=== PATIENT | male | born 1955 | race Hispanic/Latino ===

== ENCOUNTER 2017-03-21 20:21 | Inpatient (IN) | payer OTHER ==
--- NOTE | 2017-03-21 21:11 | ED PDOC ---
Arrival/HPI - General Time Seen by Provider: 03/21/17 20:33 Historian: Patient - History of Present Illness Narrative History of Present Illness (Text): 03/21/17 21:11 61 year old male, whose past medical history include prostate CA with metastasis , presents to the emergency department for evaluation following outpatient MRI results this afternoon tonight. Patient with history of right vague facial discomfort and facial numbness began last week. Patient was seen at [facility] days ago for similar complaints and had been admitted with negative neurological work up and negative CT studies subsequently discharged and recommended follow up. No significant findings at this time. Patient today was sent by her radiation/oncologist who ordered outpatient MRI. Given the findings on MRI and inability to reach Dr. Owens patient was transported to [facility] for further evaluation. Patient states he feels fine and symptoms are minimal. Patient denies any fever, chills, chest pain, shortness of breath, nausea, vomiting, diarrhea, urinary symptoms, back pain, neck pain, headache, dizziness , weakness or any other complaints. Time/Duration: Other (this afternoon) Symptom Onset: Sudden Symptom Course: Unchanged Activities at Onset: Light Context: Home Past Medical History - Provider Review Nursing Documentation Reviewed: Yes Family/Social History - Physician Review Nursing Documentation Reviewed: Yes Family/Social History: No Known Family HX Allergies/Home Meds Allergies/Adverse Reactions: Allergies No Known Allergies Allergy (Unverified 03/21/17 22:31) Home Medications: Home Meds Medication Instructions Recorded Confirmed Oxycodone HCl [Oxycodone HCl] 10 mg PO Q12H 03/22/17 03/22/17 oxyCODONE [oxyCONTIN] 10 mg PO Q6H 03/22/17 03/22/17 Review of Systems - Physician Review All systems were reviewed & negative as marked: Yes - Review of Systems Constitutional: absent: Fevers, Other (Chills) Respiratory: absent: SOB Cardiovascular: absent: Chest Pain Gastrointestinal: absent: Diarrhea, Nausea, Vomiting Genitourinary Male: absent: Dysuria, Frequency, Hematuria Musculoskeletal: absent: Back Pain, Neck Pain Neurological: Other ((+) right facial discomfort/numbness (-) weakness). absent : Headache, Dizziness Physical Exam Vital Signs Reviewed: Yes Vital Signs Temp Pulse Resp BP Pulse Ox 03/21/17 20:46 97.9 F 108 H 18 132/56 L 98 Temperature: Afebrile Blood Pressure: Normal Pulse: Regular Respiratory Rate: Normal Appearance: Positive for: Well-Appearing, Non-Toxic, Comfortable, Other (eating pizza ) Pain Distress: None Mental Status: Positive for: Alert and Oriented X 3 - Systems Exam Head: Present: Atraumatic, Normocephalic Pupils: Present: PERRL Extroacular Muscles: Present: EOMI Conjunctiva: Present: Normal Ears: Present: Normal, NORMAL TM Mouth: Present: Moist Mucous Membranes Pharnyx: Present: Normal Neck: Present: Normal Range of Motion. No: Meningeal Signs, MIDLINE TENDERNESS , Paraspinal Tenderness Respiratory/Chest: Present: Clear to Auscultation, Good Air Exchange. No: Respiratory Distress, Accessory Muscle Use Cardiovascular: Present: Regular Rate and Rhythm, Normal S1, S2. No: Murmurs Abdomen: Present: Normal Bowel Sounds. No: Tenderness, Distention, Peritoneal Signs Back: Present: Normal Inspection Upper Extremity: Present: Normal Inspection. No: Cyanosis, Edema Lower Extremity: Present: Normal Inspection, Normal ROM (FROM x4 intact). No: Edema Neurological: Present: GCS=15, CN II-XII Intact, Speech Normal, Motor Func Grossly Intact, Normal Sensory Function, Normal Cerebellar Funct, Norm Deep Tendon Reflexes, Gait Normal, Memory Normal. No: Other (No focal deficits, no motor or sensory deficits. ) Skin: Present: Warm, Dry, Normal Color. No: Rashes Psychiatric: Present: Alert, Oriented x 3, Normal Insight, Normal Concentration Medical Decision Making ED Course and Treatment: 03/21/17 21:11 Impression: 61 male presents for evaluation on MRI results. Patient reports hx of right facial discomfort and numbness. Plan: -- EKG -- Labs -- Chest X-ray -- Brain W and WO Contrast MRI -- Reassess and disposition Progress Notes: 03/21/17 23:23 Case was d/w who evaluated the patient and accepted on admission to her service.Requested / ,and on consult. - Lab Interpretations Lab Results: 03/21/17 21:45 03/21/17 21:45 Lab Results 03/21/17 21:45: WBC 3.8 L D, RBC 3.09 L, Hgb 8.6 L, Hct 26.3 L, MCV 85.1, MCH 27.8, MCHC 32.7, RDW 16.2 H, Plt Count 117 L, MPV 8.2 03/21/17 21:45: Sodium 132, Potassium 4.2, Chloride 98, Carbon Dioxide 27, Anion Gap 11, BUN 26 H, Creatinine 0.6 L, Est GFR ( Amer) > 60, Est GFR ( Non-Af Amer) > 60, Random Glucose 109, Calcium 9.2, Total Bilirubin 0.4, AST 80 H, ALT 32, Alkaline Phosphatase 883 H, Total Protein 5.8, Albumin 3.2, Globulin 2.6, Albumin/Globulin Ratio 1.3 03/21/17 21:45: PT 14.3 H, INR 1.25 H, APTT 25.3 I have reviewed the lab results: Yes - EKG Interpretation Interpreted by ED Physician: Yes Type: 12 lead EKG NIHSS Scale ([place]) Time Performed: 20:55 - How Severe is the [place] Baseline Level of Consciousness: 0=Alert LOC to Questions: 0=Both comments correct LOC to commands: 0=Obeys both correctly Best Gaze: 0=Normal Visual: 0=No visual loss Facial: 0=Normal Motor Arm - Left: 0=No drift Motor Arm - Right: 0=No drift Motor Leg - Left: 0=No drift Motor Leg - Right: 0=No drift Limb Ataxia: 0=Absent Sensory: 0=Normal Best Language: 0=No aphasia Dysarthia: 0=Normal articulation Extinction & Inattention (Neglect): 0=Normal, no object Score: 0 Risk Level: No Stroke Risk - Scribe Statement The provider has reviewed the documentation as recorded by the Cindy Domínguez Provider Scribe Attestation: All medical record entries made by the Cindy were at my direction and personally dictated by me. I have reviewed the chart and agree that the record accurately reflects my personal performance of the history, physical exam, medical decision making, and the department course for this patient. I have also personally directed, reviewed, and agree with the discharge instructions and disposition. Disposition/Present on Arrival - Present on Arrival Any Indicators Present on Arrival: No History of DVT/PE: No History of Uncontrolled Diabetes: No Urinary Catheter: No History of Decub. Ulcer: No History Surgical Site Infection Following: None - Disposition Have Diagnosis and Disposition been Completed?: Yes Diagnosis: Prostate cancer metastatic to multiple sites, Facial pain Disposition: HOSPITALIZED Disposition Time: 23:20 Patient Plan: Observation Patient Problems: Current Active Problems Problem Status Onset Facial pain Acute Prostate cancer metastatic to multiple sites Acute Condition: STABLE
[2017-03-21 21:52] LABS: HEMOGLOBIN 8.6 g/dL (14.0-18.0); MEAN CELL VOLUME 85.1 fl (80.0-105.0); MEAN CORPUSCULAR HEMOGLOBIN 27.8 pg (25.0-35.0); MEAN CORPUSCULAR HGB CONC 32.7 g/dl (31.0-37.0); MEAN PLATELET VOLUME 8.2 fl (7.0-11.0); RBC 3.09 10^6/uL (3.5-6.1); RED CELL DISTRIBUTION WIDTH 16.2 % (11.5-14.5); WHITE BLOOD COUNT 3.8 10^3/ul (4.5-11.0)
[2017-03-21 22:05] LABS: INR 1.25 (0.93-1.08); PARTIAL THROMBOPLASTIN TIME 25.3 Seconds (25.1-36.5); PROTHROMBIN TIME 14.3 SECONDS (9.4-12.5)
[2017-03-21 22:41] LABS: ALB/GLOB RATIO 1.3 (1.1-1.8); ALBUMIN 3.2 g/dL (3.0-4.8); ALT/SGPT 32 U/L (7-56); AST/SGOT 80 U/L (17-59); BLOOD UREA NITROGEN 26 mg/dL (7-21); CALCIUM 9.2 mg/dL (8.4-10.5); GFR AFRICAN-AMERICAN > 60; GFR NON-AFRICAN AMERICAN > 60
[2017-03-22] MEDS ORDERED: HYDROmorphone 0.5 mg/0.5 ml ISec IVP PRN (01:28)
[2017-03-22] MEDS ORDERED: HYDROmorphone 0.5 mg/0.5 ml ISec IVP STA (03:30)
[2017-03-22 05:32] VITALS: BMI 23.6
[2017-03-22] MEDS: Pantoprazole 40 mg EC Tab PO SCH (07:10)
--- NOTE | 2017-03-22 08:02 | CP.PCM.CON ---
History of Present Illness - History of Present Illness History of Present Illness: Mr Garrison is a 61 year old who is known to our department with stage IV metastatic high risk prostate cancer. He was diagnosed in September 2016 at [facility]. At that time, he had a PSA > 150. His bone scan showed diffuse bone mets. He went [place] [facility] and met with a medical oncologist once. He did not have insurance and only had one injection of androgen deprivation therapy. He did not return because he could not afford further treatment. Many months passed, and then he was admitted to [facility] with pain. He had a CT and MRI at [facility] at the end of February with blood transfusions. He had more extensive bone metastases. He finally had insurance. He then met with us on March 08 for palliative radiation for his pain. On reviewing his imaging studies, he had replacement of almost all of his normal bone with disease. We started focal radiation to the area where there was ventral epidural extension at T10-11 also we are treating his pelvis due to significant pain in the lower back. He also recently met with Dr Saez in consultation and started on androgen deprivation therapy. We had seen him yesterday in our office, and he had mentioned going to [facility] over the weekend due to numbness on his right lip and some changes on the left face. He had a CT of the head there which was reportedly negative. Because of his known extensive disease, I had ordered a MRI of the brain to look for any parenchymal lesions. The MRI of the brain yesterday showed diffuse involvement of the cranium as well as dural enhancement. I had a received a missed call yesterday evening from the prosthetic lab technician, however he did not leave a message so I did not know who was calling. Anyway, they wanted to send him to the emergency room for observation which I deferred to them. Past Patient History - Past Social History Smoking Status: Never Smoked Home Situation {Lives}: With Family - CARDIAC Hx Cardiac Disorders: No - PULMONARY Hx Respiratory Disorders: No - NEUROLOGICAL Hx Neurological Disorder: No - HEENT Hx HEENT Problems: No - RENAL Hx Chronic Kidney Disease: No - ENDOCRINE/METABOLIC Hx Endocrine Disorders: No - HEMATOLOGICAL/ONCOLOGICAL Hx Blood Disorders: No Hx Cancer: Yes (prostate cancer [place] 8 diagnosed in 2017; ADT with [place]) - INTEGUMENTARY Hx Dermatological Problems: No - MUSCULOSKELETAL/RHEUMATOLOGICAL Hx Musculoskeletal Disorders: No Hx Falls: No Other/Comment: b/l hip pain - GASTROINTESTINAL Hx Gastrointestinal Disorders: No - GENITOURINARY/GYNECOLOGICAL Hx Genitourinary Disorders: No - PSYCHIATRIC Hx Psychophysiologic Disorder: No - SURGICAL HISTORY Hx Orthopedic Surgery: Yes (left ankle) Meds Allergies/Adverse Reactions: Allergies Allergy/AdvReac Type Severity Reaction Status Date / Time No Known Allergies Allergy Unverified 03/21/17 22:31 - Medications Medications: Current Medications Hydromorphone HCl (Dilaudid) 0.25 mg IVP Q4H PRN PRN Reason: Pain, moderate (4-7) Last Admin: 03/22/17 01:48 Dose: 0.25 mg Pantoprazole Sodium (Protonix Ec Tab) 40 mg PO 0600 MIGUEL ANGEL Last Admin: 03/22/17 07:10 Dose: Not Given Physical Exam - Head Exam Head Exam: NORMAL INSPECTION - Respiratory Exam Respiratory Exam: Clear to Auscultation Bilateral - Cardiovascular Exam Cardiovascular Exam: REGULAR RHYTHM - GI/Abdominal Exam GI & Abdominal Exam: Normal Bowel Sounds - Neurological Exam Neurological exam: Oriented x3 Additional comments: Numbness along right lip and left face Results - Vital Signs Recent Vital Signs: Last Vital Signs Temp 98.1 F 03/22/17 01:33 Pulse 100 H 03/22/17 01:33 Resp 18 03/22/17 01:33 BP 132/56 L 03/22/17 01:33 Pulse Ox 98 03/21/17 20:46 - Labs Result Diagrams: 03/21/17 21:45 03/21/17 21:45 Assessment & Plan - Assessment and Plan (Free Text) Assessment: Mr Garrison is a 61 year old gentleman with extensive high risk prostate cancer with diffuse replacement of his entire axial skeleton with disease. He was having focal neurologic deficits so I had ordered a MRI. The scan was significant for replacement of the bone marrow with dural enhancement secondary to his disease. Unfortunately, it is not apparent to me that we can offer focal radiation to the head since it is not clear where the bony disease is knicking the cranial nerve (intracranial or extracranially). I had ordered the MRI looking for parenchymal metastases which can offer in late stage disease. He recently started on androgen deprivation therapy, and my hope would be that as the ADT begins to work on his diffuse systemic disease, his symptoms ( including neurologic deficits) will be improve. Given how extensive his cranial disease is, I would hold off on any whole brain/whole face radiation since this would have more morbidity.The ADT was just given less than two weeks ago and will need time to take effect. In the interim, we will finish his palliative radiation to the his mid-back and pelvis, and will continue monitoring him closely with Dr Saez. His facilities locator prognosis is poor given the extent of his disease. He is transfusion dependent at this time because of his poor bone marrow reserve from his cancer.
--- NOTE | 2017-03-22 08:18 | CP.PCM.PN ---
Subjective - Date & Time of Evaluation Date of Evaluation: 03/22/17 Time of Evaluation: 08:30 - Subjective Subjective: I just spoke with Dr Campuzano about the patient. I feel that he can be safely managed as an outpatient by myself, Dr Saez and Dr Campuzano. He will need close monitoring of his H/H since he is transfusion dependent from his prostate cancer. Objective - Vital Signs/Intake and Output Vital Signs (last 24 hours): Temp Pulse Resp BP Pulse Ox 99.0 F 107 H 18 125/64 97 03/22/17 07:30 03/22/17 07:30 03/22/17 07:30 03/22/17 07:30 03/22/17 07:30 Intake and Output: 03/22/17 03/22/17 06:59 18:59 Intake Total 240 Output Total 500 Balance -260 - Medications Medications: Current Medications Hydromorphone HCl (Dilaudid) 0.25 mg IVP Q4H PRN PRN Reason: Pain, moderate (4-7) Last Admin: 03/22/17 01:48 Dose: 0.25 mg Pantoprazole Sodium (Protonix Ec Tab) 40 mg PO 0600 [facility] ANGEL Last Admin: 03/22/17 07:10 Dose: Not Given - Labs Labs: PT 14.3 SECONDS (9.4-12.5) H 03/21/17 21:45 INR 1.25 (0.93-1.08) H 03/21/17 21:45 APTT 25.3 Seconds (25.1-36.5) 03/21/17 21:45
[2017-03-22] MEDS ORDERED: oxyCODONE 10 mg Immediate Release Tab PO PRN (09:19)
[2017-03-22] MEDS ORDERED: oxyCODONE 10 mg ER Tab (oxyCONTIN) PO SCH (10:00)
[2017-03-22] MEDS: oxyCODONE 10 mg ER Tab (oxyCONTIN) PO SCH ×2 (10:03→21:21)
--- NOTE | 2017-03-22 10:22 | CARD ---
APPROVED REPORT EKG Measurement Heart [id number] VT [id number] <Conclusion> Sinus tachycardia Minimal voltage criteria for LVH, may be normal variant No change
[2017-03-22] MEDS: oxyCODONE 10 mg Immediate Release Tab PO PRN ×2 (10:57→17:25)
--- NOTE | 2017-03-22 12:58 | HP ---
DATE OF EXAM: CHIEF COMPLAINT: Numbness in the jaw and pain. HISTORY OF PRESENT ILLNESS: Mr. Darshan Holm is 61 years old male with past medical history of prostate cancer with metastasis, came to the emergency department for evaluation of the outpatient MRI results this afternoon. Patient with history of right vague facial discomfort and facial numbness began last week. Patient was seen at this medical center two days ago for similar complaints and had been admitted with negative neurological workup and need CT studies, has subsequently discharged and recommended followup. No significant findings at that time and patient today went to his radiology and oncology, Dr. Owens who ordered outpatient MRI. Given the findings on MRI, by the optoelectronic technician. Patient was transferred to [place] ER for further evaluation. Patient states that he feels fine except that numbness and pain in the jaw. No fever, no chills. No nausea, vomiting, or diarrhea. No hematuria, no hematochezia. No swelling of the leg. I have discussion done with Dr. Caldera, ER physician. PAST MEDICAL HISTORY: As above. Patient has history of prostate cancer with metastasis. FAMILY HISTORY: Father and mother, noncontributory. HABITS: Never smoked. No drugs, no ethanol. ALLERGIES: THE PATIENT IS NOT ALLERGIC WITH ANY MEDICATION. HOME MEDICATIONS: Oxycodone, OxyContin. REVIEW OF SYSTEMS: Patient is seen and examined on the bedside in the emergency room, complaining about jaw pain and numbness on the right side of the angle of the mouth. No fever. No chills. No shortness of breath. No diarrhea, nausea, vomiting, dysuria, frequency, back pain, or neck pain. Only right facial discomfort. PHYSICAL EXAMINATION: VITAL SIGNS: Temperature 97.9, pulse 108, respiratory rate 18, blood pressure 138/56, pulse oximetry 98%. HEENT: Head: Normocephalic, atraumatic. Eyes: PERRLA. Extraocular muscles intact. Conjunctivae clear. Nose: Patent. Mucous membranes moist. NECK: Supple. No carotid bruits. No JVD or thyromegaly. CHEST: Bilaterally symmetrical. HEART: S1, S2 positive. LUNGS: Clear to auscultation. ABDOMEN: Soft. Bowel sounds present. No organomegaly. EXTREMITIES: No edema, no cyanosis. NEUROLOGIC: Patient is awake and alert. Moving all four extremities. No focal deficit. LABORATORY DATA: White blood cells 3.8, hemoglobin 8.6, hematocrit 26.3, platelets 117. Sodium 132, potassium 4.2. BUN 26, creatinine noted Glucose 109. ASSESSMENT AND PLAN: Mr. Darshan Holm is a 61-year-old male with leukopenia, anemia, thrombocytopenia, actually pancytopenia, renal insufficiency, history of prostate cancer with metastasis to multiple sites, facial pain. Brain MRI is done, the results are pending. We are giving pain medication. Gastrointestinal and deep venous thrombosis prophylaxis. Waiting for the to bring medications, so we can order deep venous thrombosis and gastrointestinal prophylaxis. Repeat labs. We will follow. Sandi Campuzano MD MTDD
[2017-03-22] MEDS: POLYETHYLENE GLYCOL 3350 17 GM/Dose PACKET PO SCH (14:16)
--- NOTE | 2017-03-22 17:34 | CON ---
DATE: 03/22/2017 CHIEF COMPLAINT: Right lower lip and facial numbness. HISTORY OF PRESENT ILLNESS: This is a 61-year-old man with history of stage IV metastatic high-risk prostate cancer diagnosed in September [address] [facility] where he had a PSA more than 150, where he had a bone scan as well which showed diffuse bony mets and had a CAT and MRI at [facility] at the end of February 2017 with blood transfusion where he had more extensive bony mets were seen and was started on focal radiation to the area where he had ventral epidural extension at T10-T11 and was treated pain in the lower back and was seen Dr. Saez, his oncologist and was on androgen deprivation therapy. 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 Currently, he describes his right facial numbness mostly very mild and is at the lower lip but not the whole face. No double vision. No headache. No changes in sense of vision, taste, or smell at this time. He denies any focal paresthesia of the upper extremities at this time. He is currently sitting at the edge of the bed and is comfortable. PAST MEDICAL HISTORY: Stage IV prostatic cancer with metastasis to the bones, hypertension. SOCIAL HISTORY: No illicit drug use, smoking, or EtOH abuse. MEDICATIONS: Reviewed by nurse's reconciliation sheet. REVIEW OF SYSTEMS: A 14-point review of systems is negative except as per the HPI. ALLERGIES: NO KNOWN DRUG ALLERGIES. PHYSICAL EXAMINATION: VITAL SIGNS: Temperature 99, pulse rate , blood pressure 125/65, respiratory rate 18, and oxygen saturation 97% by room air. GENERAL: The patient is sitting up in bed, in no acute distress. HEENT: Atraumatic and normocephalic. PERRLA. Extraocular muscles intact. NECK: Supple. No JVD, no adenopathy noted. LUNGS: Clear to auscultation. No adventitious sounds. HEART: S1 and S2. Normal rate and rhythm. No murmurs, rubs, or gallops. ABDOMEN: Soft, nontender, and nondistended. Bowel sounds are present. EXTREMITIES: No clubbing. No cyanosis. Peripheral pulses are 2+ felt bilaterally. Very cachectic looking. NEUROLOGIC: The patient is alert and oriented to person, place, month, and year. Speech is fluent without errors. Poor attention span and slow thought process. Cranial nerves II through XII are intact. Motor: Moves all extremities equally. No pronator drift seen. Sensory: Light touch, pinprick, proprioception, and vibration intact. DTRs are 2+ throughout and 1 at the ankles. Coordination: [id number] intact. Gait is deferred for now. LABORATORY DATA: Sodium is 132, potassium 4.2, chloride 98, carbon dioxide of 28, BUN of 26, creatinine of 0.6. ASSESSMENT AND PLAN: A 61-year-old man with extensive high-risk prostate cancer with diffuse replacement for his entire axial skeleton with disease and having left facial numbness and right lower lip numbness with MRI of the brain shows some dural metastasis but no intracerebral metastasis and he is recently started on androgen deprivation therapy. At this time, he does not have any focal neurological deficits except for some subjective facial numbness. I suggested to start him on gabapentin 100 mg p.o. at bedtime for neuropathic relief and to follow up with Hematology, Oncology, and Radiation Oncology in regards to his further management for his cancer. Monitor his hemoglobin and hematocrit. Prognosis is poor. Again, this is extensive disease. Thank you for this consult. Frank Soliman MD
--- NOTE | 2017-03-22 20:14 | CP.PCM.CON ---
History of Present Illness - History of Present Illness History of Present Illness: 61 year old male with a history of stage IV prostate cancer on total androgen deprivation and palliative radiation, admitted for MRI of the brain findings. The patient had an MRI of the brain last night for facial numbness. This revealed diffuse dural enhancement. The patient denies fevers, chills, and headache. He received a Lupron injection with me last week and is on palliative radiotherapy with Dr. Owens to the T-spine and pelvis. Past medical history: Stage IV prostate cancer Past surgical history: None Family history: Denies Social history: Denies tobacco, alcohol, and illlicit drug use. Allergies: NKA Review of systems: All remaining review of systems including HEENT, cardiovascular, respiratory, gastrointestinal, genitourinary, musculoskeletal, dermatologic, neurologic, and psychiatric are negative unless mentioned in the HPI. Past Patient History - Past Social History Smoking Status: Never Smoked Home Situation {Lives}: With Family - CARDIAC Hx Cardiac Disorders: No - PULMONARY Hx Respiratory Disorders: No - NEUROLOGICAL Hx Neurological Disorder: No - HEENT Hx HEENT Problems: No - RENAL Hx Chronic Kidney Disease: No - ENDOCRINE/METABOLIC Hx Endocrine Disorders: No - HEMATOLOGICAL/ONCOLOGICAL Hx Blood Disorders: No Hx Cancer: Yes (prostate cancer [place] 8 diagnosed in 2017; ADT with [place]) - INTEGUMENTARY Hx Dermatological Problems: No - MUSCULOSKELETAL/RHEUMATOLOGICAL Hx Musculoskeletal Disorders: No Hx Falls: No Other/Comment: b/l hip pain - GASTROINTESTINAL Hx Gastrointestinal Disorders: No - GENITOURINARY/GYNECOLOGICAL Hx Genitourinary Disorders: No - PSYCHIATRIC Hx Psychophysiologic Disorder: No - SURGICAL HISTORY Hx Orthopedic Surgery: Yes (left ankle) Meds Allergies/Adverse Reactions: Allergies Allergy/AdvReac Type Severity Reaction Status Date / Time No Known Allergies Allergy Unverified 03/21/17 22:31 - Medications Medications: Current Medications Gabapentin (Neurontin) 100 mg PO HS [facility]IGUEL ANGEL PRN Reason: Protocol Oxycodone HCl (Oxycontin Extended Release Tab) 10 mg PO Q12 MIGUEL ANGEL Stop: 03/25/17 10:01 Last Admin: 03/22/17 10:03 Dose: 10 mg Oxycodone HCl (Oxycodone Immediate Release Tab) 10 mg PO Q6H PRN PRN Reason: Pain, moderate (4-7) Last Admin: 03/22/17 17:25 Dose: 10 mg Pantoprazole Sodium (Protonix Ec Tab) 40 mg PO 0600 [facility] Last Admin: 03/22/17 07:10 Dose: Not Given Polyethylene Glycol (Miralax) 17 gm PO DAILY [facility] Last Admin: 03/22/17 14:16 Dose: 17 gm Physical Exam - Head Exam Head Exam: ATRAUMATIC - Eye Exam Eye Exam: Normal appearance - ENT Exam ENT Exam: Mucous Membranes Dry - Respiratory Exam Respiratory Exam: NORMAL BREATHING PATTERN - Cardiovascular Exam Cardiovascular Exam: +S1, +S2 - GI/Abdominal Exam GI & Abdominal Exam: Normal Bowel Sounds - Extremities Exam Extremities exam: Positive for: normal inspection - Neurological Exam Neurological exam: Oriented x3 - Psychiatric Exam Psychiatric exam: Normal Affect, Normal Mood - Skin Skin Exam: Warm Results - Vital Signs Recent Vital Signs: Last Vital Signs Temp 99.0 F 03/22/17 07:30 Pulse 107 H 03/22/17 07:30 Resp 18 03/22/17 07:30 BP 125/64 03/22/17 07:30 Pulse Ox 97 03/22/17 07:30 - Labs Result Diagrams: 03/21/17 21:45 03/21/17 21:45 Assessment & Plan (1) Pancytopenia Assessment and Plan: secondary to diffuse bone metastasis likely element of anemia of chronic disease has required PRBC transfusion support in the past. Status: Acute (2) Prostate cancer Assessment and Plan: diffuse bone metastasis on total androgen deprivation dural enhancement likely from malignancy; cont. hormonal therapy outpatient f/u Thank you for this interesting consult. Status: Acute
[2017-03-23] MEDS: oxyCODONE 10 mg Immediate Release Tab PO PRN (03:11)
[2017-03-23] MEDS: Pantoprazole 40 mg EC Tab PO SCH (05:32)
[2017-03-23 07:16] LABS: HEMOGLOBIN 7.6 g/dL (14.0-18.0); MEAN CELL VOLUME 84.3 fl (80.0-105.0); MEAN CORPUSCULAR HEMOGLOBIN 27.7 pg (25.0-35.0); MEAN CORPUSCULAR HGB CONC 32.9 g/dl (31.0-37.0); MEAN PLATELET VOLUME 8.9 fl (7.0-11.0); RBC 2.74 10^6/uL (3.5-6.1); RED CELL DISTRIBUTION WIDTH 16.3 % (11.5-14.5); WHITE BLOOD COUNT 3.1 10^3/ul (4.5-11.0)
[2017-03-23 07:26] LABS: BLOOD UREA NITROGEN 26 mg/dL (7-21); CALCIUM 8.9 mg/dL (8.4-10.5); GFR AFRICAN-AMERICAN > 60; GFR NON-AFRICAN AMERICAN > 60; HDL CHOLESTEROL 27 mg/dL (29-60)
[2017-03-23 07:37] LABS: LDL CHOLESTEROL 69 mg/dL (0-129)
[2017-03-23 07:42] LABS: IRON 50 ug/dL (45-180)
[2017-03-23 07:53] LABS: % IRON SATURATION 28 % (20-55); TOTAL IRON BINDING CAPACITY 178 ug/dL (261-462)
[2017-03-23 07:56] VITALS: O2SAT 96
[2017-03-23] MEDS: oxyCODONE 10 mg ER Tab (oxyCONTIN) PO SCH (09:04)
--- NOTE | 2017-03-23 09:29 | PN ---
DATE: 03/22/2017 SUBJECTIVE: Patient was seen and examined at the bedside. Looking comfortable. No fever, no chills. No nausea, vomiting, or diarrhea. No hematuria or hematochezia. No headache, no dizziness. He is still having numbness in the angle of the jaw and bodily aches. PHYSICAL EXAMINATION VITAL SIGNS: Temperature 99.0, pulse 107, blood pressure 125/54, respiratory rate 18. HEENT: Head normocephalic, atraumatic. Eyes: PERRLA. Extraocular muscles intact. Conjunctivae clear. Nose: Patent. Mucous membranes moist. NECK: Supple. No carotid bruits. No JVD or thyromegaly. CHEST: Bilaterally symmetrical. HEART: S1 and S2 positive. LUNGS: Clear to auscultation. ABDOMEN: Soft. Bowel sounds present. No organomegaly. EXTREMITIES: No edema, no cyanosis. NEUROLOGIC: Patient is awake and alert. Moving all four extremities. No focal deficit. MEDICATIONS: MiraLax, oxycodone, OxyContin, Protonix. LABORATORY DATA: White blood cells 3.8, hemoglobin 8.6, hematocrit 26.3, platelets 117. Sodium 132, potassium 4.2. BUN 23, creatinine 0.6. AST 80. ASSESSMENT AND PLAN: Mr. Darshan Garrison is a 61-year-old male with leukopenia, anemia, renal insufficiency, abnormal liver function test, history of prostate cancer. Length of time discussion with Dr. Owens, radiation oncologist. 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 Prostate-specific antigen at that time was more than 150. Bone scan showed severe bone metastasis. Patient does not use to have insurance, that is why he was not getting treatment regularly, but was getting one injection of androgen deprivation therapy. A couple of times, CAT scan or MRI were done. Finally Dr. Owens, because of patient's extensive disease and problem, ordered MRI of the brain to look for any parenchymal lesion. The MRI of the brain yesterday showed diffuse involvement of the cranium as well as dural enhancement. Meanwhile, patient is admitted. We called Neurology consult, ENT, Oncology, and Radiation Oncology consult. Given how extensive disease, Dr. Owens said she will hold off any whole brain or whole face radiation since this would more and more . The androgen deprivation therapy was just given less than 2 weeks ago, and will need time to takeoff. In the term, we will mild back and pelvis, and we will continue monitoring very closely with Dr. Saez. His long-term prognosis is poor given extensive disease. He is getting very often blood transfusions as hemoglobin is dropping. Gastrointestinal and deep vein thrombosis prophylaxis. Length of time discussion done with Dr. Owens and Dr. Saez's consult called. We will wait for the . Sandi Campuzano MD
[2017-03-23] MEDS ORDERED: oxyCODONE 10 mg Immediate Release Tab PO PRN (10:01)
[2017-03-23] MEDS: POLYETHYLENE GLYCOL 3350 17 GM/Dose PACKET PO SCH (10:53)
[2017-03-23 12:27] VITALS: RESP 18
[2017-03-23 13:15] LABS: FOLATE 9.2 ng/mL
[2017-03-23 19:39] VITALS: BP 125/58; PULSE 104; TEMP 98.1
== END 2017-03-23 21:30 | disposition home or self-care (01) | DRG 723 ==
LOC: ED 20:21 → ERH 23:14 → 5RNO 03-22 01:03 → OBSVTOIN 03-22 15:21
PROVIDERS: ADMIT Internal Medicine; ATTEND Internal Medicine
PROC: 30233N1 Transfusion of Nonautologous Red Blood Cells into Peripheral Vein, Percutaneous Approach (ICD-10-PCS; principal; 2017-03-23)
DX: C61 Malignant neoplasm of prostate (principal); C79.31 Secondary malignant neoplasm of brain; D61.818 Other pancytopenia; C79.51 Secondary malignant neoplasm of bone; D63.8 Anemia in other chronic diseases classified elsewhere; I10 Essential (primary) hypertension; N28.9 Disorder of kidney and ureter, unspecified; R40.2412 Glasgow coma scale score 13-15, at arrival to emergency department; R51 Headache; M25.552 Pain in left hip; M25.551 Pain in right hip